=== PATIENT | female | born 1995 | race Caucasian/White ===

== ENCOUNTER 2018-10-12 12:19 | Emergency (ER) | payer OTHER ==
[2018-10-12 12:20] VITALS: BMI 25.0
[2018-10-12 12:50] VITALS: BP 120/73; PULSE 84; RESP 18; TEMP 98.6; O2SAT 99
--- NOTE | 2018-10-12 13:08 | ED PDOC ---
HPI: Eye Injury/Pain Time Seen by Provider: 10/12/18 12:56 Chief Complaint (Nursing): Eye Problem Chief Complaint (Provider): Right Eye Swelling / Redness History Per: Patient History/Exam Limitations: no limitations Onset/Duration Of Symptoms: Days (x3) Current Symptoms Are (Timing): Still Present Additional Complaint(s): 23 year old female presents to the ED for evaluation of right lower eyelid swelling, irritation, and redness for the past three days which has been worsening. Otherwise, denies injury, pain, drainage, vision changes, and eyeball pain or pressure. PMD: Christopher Oakes Past Medical History Reviewed: Historical Data, Nursing Documentation, Vital Signs Vital Signs: Last Vital Signs Temp 98.6 F 10/12/18 12:48 Pulse 84 10/12/18 12:48 Resp 18 10/12/18 12:48 BP 120/73 10/12/18 12:48 Pulse Ox 99 10/12/18 12:48 - Medical History PMH: No Chronic Diseases - Surgical History Surgical History: No Surg Hx - Family History Family History: States: Unknown Family Hx - Social History Current smoker - smoking cessation education provided: No Alcohol: None Drugs: Denies - Immunization History Hx Tetanus Toxoid Vaccination: Yes Hx Influenza Vaccination: Yes Hx Pneumococcal Vaccination: Yes - Home Medications Home Medications: Ambulatory Orders Medication Instructions Recorded Ondansetron [Zofran] 4 mg PO Q8H #9 tab 11/06/14 Erythromycin 0.5% [Erythromycin] 1 cm OD Q6H #1 tube 10/12/18 - Allergies Allergies/Adverse Reactions: Allergies Allergy/AdvReac Type Severity Reaction Status Date / Time No Known Allergies Allergy Verified 10/12/18 12:48 Review of Systems ROS Statement: Except As Marked, All Systems Reviewed And Found Negative Eyes: Positive for: Other (right lower eyelid swelling and irritation with redness; no drainage). Negative for: Pain, Vision Change Physical Exam - Reviewed Nursing Documentation Reviewed: Yes Vital Signs Reviewed: Yes - Physical Exam Appears: Positive for: No Acute Distress Head Exam: Positive for: ATRAUMATIC, NORMOCEPHALIC Skin: Positive for: Normal Color, Warm. Negative for: Rash Eye Exam: Positive for: EOMI, PERRL, Periorbital swelling (right), Periorbital tenderness (right), Other (erythema to margin of right eyelid; no scleral eryt donn, drainage, or photosensitivity ) ENT: Positive for: Normal ENT Inspection Cardiovascular/Chest: Positive for: Regular Rate, Rhythm Respiratory: Positive for: Normal Breath Sounds. Negative for: Respiratory Distress Neurological/Psych: Positive for: Awake, Alert, Oriented (x3) - ECG O2 Sat by Pulse Oximetry: 99 (RA) Pulse Ox Interpretation: Normal Medical Decision Making Medical Decision Making: Time: 1303 Initial Impression: blepharitis Initial Plan: --Erythromycin script will be given upon d/c with instructions to use warm compresses a few times daily. Patient advised to return to ED if eyeball pain, drainage, or increased periorbital swelling develops. Stable for d/c at this time. Scribe Attestation: Documented by Sharee Bowen, acting as a scribe for Sabina Palomares APN. Provider Scribe Attestation: All medical record entries made by the Scribe were at my direction and pers onally dictated by me. I have reviewed the chart and agree that the record accurately reflects my personal performance of the history, physical exam, medical decision making, and the department course for this patient. I have also personally directed, reviewed, and agree with the discharge instructions and disposition. Disposition - Clinical Impression Clinical Impression: Blepharitis of eyelid of right eye - Patient ED Disposition Is Patient to be Admitted: No Counseled Patient/Family Regarding: Rx Given - Disposition Disposition: Routine/Home Disposition Time: 13:03 Condition: GOOD Prescriptions: Erythromycin 0.5% [Erythromycin] 1 cm OD Q6H #1 tube Instructions: Blepharitis Forms: [facility] ([place]) Print Language: POLISH - DARRELL Present On Arrival: None
== END 2018-10-12 13:12 | disposition home or self-care (01) ==
LOC: H.ER 12:19
DX: H01.00A Unspecified blepharitis right eye, upper and lower eyelids (principal)